=== PATIENT | male | born 1940 | race Hispanic/Latino ===

== ENCOUNTER → 2017-07-03 | Outpatient (CLI) | payer OTHER ==
[~2017-07-03] MED LIST: DIGO125T87 PO; DOXY100C2 PO; EZET10TA26 PO; LISI2.5T2 PO; METO25TA6 PO; RIVA20TA PO
== END | disposition home or self-care (01) ==
LOC: SHCH 11:01
PROVIDERS: ATTEND Internal Medicine Cardiovascular Disease
DX: I07.1 Rheumatic tricuspid insufficiency (principal); I37.1 Nonrheumatic pulmonary valve insufficiency; I10 Essential (primary) hypertension; Q21.1 Atrial septal defect
CPT/HCPCS: 93306

== ENCOUNTER 2017-08-20 07:53 | Observation (INO) | payer OTHER ==
[2017-08-18 12:03] LABS: BASOPHILS % (AUTO) 0.4 % (0.0-5.0); EOSINOPHILS % (AUTO) 2.8 % (0.0-8.0); HEMATOCRIT 32.9 % (42-54); LYMPHOCYTES % (AUTO) 26.3 % (21.0-51.0); MEAN CORPUSCULAR HEMOGLOBIN 32.9 pg (27.0-33.0); MEAN CORPUSCULAR HGB CONC 34.3 g/dL (32.0-36.0); MONOCYTES % (AUTO) 10.2 % (3.0-13.0); NEUTROPHILS % (AUTO) 60.3 % (40.0-77.0); PLATELET COUNT (AUTO) 340 K/uL (130-400); RED BLOOD CELL COUNT(AUTO) 3.43 MIL/uL (4.50-6.20); RED CELL DISTRIBUTION WIDTH 14.2 % (11.0-15.5); WHITE BLOOD COUNT (AUTO) 8.8 K/uL (4.8-10.8)
[2017-08-18 12:20] LABS: CREATININE 1.1 mg/dL (0.5-1.5); POTASSIUM 4.7 mmol/L (3.5-5.1)
[2017-08-18 12:35] VITALS: BP 117/68
[~2017-08-20] VITALS: Ht 167.6 cm; Wt 68.9 kg
[2017-08-20] VITALS (13 sets, daily range): BP systolic 86–143; BP diastolic 49–84
[~2017-08-20 07:53] MED LIST changes: -DOXY100C2 PO
[2017-08-20 08:38] LABS: INR 1.05 (0.85-1.15); PARTIAL THROMBOPLASTIN TIME 30.7 SEC (26.3-35.5)
[2017-08-20] MEDS ORDERED: BUPIVACAINE/PF 0.25% 30ML VIAL IJ ONE (10:52)
[2017-08-20] MEDS ORDERED: CEFAZOLIN 1GM / D5W 50ML 150 ML ONE (10:52)
[2017-08-20] MEDS ORDERED: LIDOCAINE HCL 1% MDV 50ML VIAL ONE (10:53)
[2017-08-20] MEDS ORDERED: MEPERIDINE-PF 25 MG/ML SYG ONE ×2 (11:12→11:28)
[2017-08-20] MEDS ORDERED: MIDAZOLAM HCL 1 MG/ML 2ML VIAL ONE ×2 (11:13→11:28)
[2017-08-20] MEDS ORDERED: OCTYL 2-CYANOACRYLATE 1 EACH TP ONE (12:18)
[2017-08-20] MEDS ORDERED: DOXY100C2 PO (12:43)
[2017-08-20] MEDS ORDERED: ACETAMINOPHEN 325 MG TAB PO PRN (12:45)
[2017-08-20] MEDS ORDERED: ONDANSETRON HCL 4 MG/2 ML VIAL IV PRN (12:45)
[2017-08-20] MEDS ORDERED: ACETAMINOPHEN-CODEINE 300/30MG TAB PO PRN (12:45)
[2017-08-20] MEDS: ACETAMINOPHEN-CODEINE 300/30MG TAB PO PRN (14:58)
[2017-08-20] MEDS: DIGOXIN 125 MCG TABLET PO SCH (16:08)
[2017-08-20] MEDS ORDERED: CEFAZOLIN 1GM / D5W 50ML 50 ML IV ONE (19:15)
[2017-08-20] MEDS: METOPROLOL TARTRATE 25 MG TAB PO SCH (20:57)
[2017-08-20] MEDS: CEFAZOLIN SODIUM 1 GM VIAL IVP SCH (20:57)
[2017-08-20] MEDS ORDERED: EZETIMIBE 10 MG TAB PO SCH (21:00)
[2017-08-21 03:35] VITALS: BP 133/70
[2017-08-21] MEDS: ACETAMINOPHEN-CODEINE 300/30MG TAB PO PRN (03:39)
[2017-08-21] MEDS: CEFAZOLIN SODIUM 1 GM VIAL IVP SCH (04:06)
[2017-08-21] MEDS ORDERED: CEFAZOLIN 1GM / D5W 50ML 50 ML IV ONE (06:00)
[2017-08-21 08:14] VITALS: BP 102/72
[2017-08-21] MEDS ORDERED: LISINOPRIL 2.5 MG TABLET PO SCH (09:00)
[2017-08-21] MEDS ORDERED: RIVAROXABAN 20 MG TABLET PO SCH (09:00)
[2017-08-21] MEDS: METOPROLOL TARTRATE 25 MG TAB PO SCH (10:10)
[2017-08-21] MEDS: DIGOXIN 125 MCG TABLET PO SCH (10:10)
[2017-08-21 12:01] VITALS: BP 109/67
== END 2017-08-21 15:29 | disposition home or self-care (01) ==
LOC: DAH 07:53 → DAHIP 07:54 → DAH 07:54 → 2BH 13:57
PROVIDERS: ADMIT Internal Medicine Cardiovascular Disease; ATTEND Internal Medicine Cardiovascular Disease
DX: I50.42 Chronic combined systolic (congestive) and diastolic (congestive) heart failure (principal); I42.0 Dilated cardiomyopathy; I48.91 Unspecified atrial fibrillation; Z95.810 Presence of automatic (implantable) cardiac defibrillator; Z79.899 Other long term (current) drug therapy; Z79.01 Long term (current) use of anticoagulants
CPT/HCPCS: 33249; 36415 ×3; 71046; 80048; 80162; 85025; 85610; 85730; 93005; 96374; 96376; A4218; C1721; C1895 ×2; G0378 ×32; J0690 ×3; J2175 ×2; J2250 ×2; J3490 ×2; 99152; 99153